=== PATIENT | female | born 1970 | race Caucasian/White ===

== ENCOUNTER 2017-11-14 17:28 | Emergency (ER) | payer BC ==
[~2017-11-14] VITALS: Ht 165.1 cm; Wt 108.0 kg
--- NOTE | 2017-11-14 19:35 | Diagnostic Imaging Report ---
PROCEDURE: Frontal and lateral views of the chest. COMPARISON: None. INDICATIONS: HEMOGLOBIN LEVEL LOW FINDINGS: Lines/tubes: None. Lungs: The lungs are well inflated and clear. There is no evidence of pneumonia or pulmonary edema. Pleura: There is no pleural effusion or pneumothorax. Heart and mediastinum: The heart and the mediastinum are normal. Bones: No acute bony abnormality. Upper abdomen: No free air under the diaphragm. Surgical clips overlying the abdomen on lateral view are likely related to cholecystectomy. IMPRESSION: No acute cardiopulmonary disease. Dictated by: Arnaud Gibson M.D. on 11/14/2017 at 19:44 Electronically approved by: Arnaud Gibson M.D. on 11/14/2017 at 19:44
[2017-11-14 23:23] LABS: BASOPHILS # (AUTO) 0.1 (0.0-0.1); BASOPHILS % 0.6 % (0.0-1.0); EOSINOPHILS # (AUTO) 0.2 (0.0-0.4); EOSINOPHILS % 2.1 % (0.0-6.0); HEMATOCRIT 30.3 % (34.2-44.1); HEMOGLOBIN 8.3 g/dL (12.0-16.0); LYMPHOCYTES # (AUTO) 2.1 (1.0-3.2); LYMPHOCYTES % 26.7 % (18.0-39.1); MEAN CORPUSCULAR HEMOGLOBIN 18.4 pg (28-32); MEAN CORPUSCULAR HGB CONC 27.4 g/dL (31-35); MONOCYTES # (AUTO) 0.4 (0.2-0.8); MONOCYTES % 5.5 % (4.4-11.3); NEUTROPHILS # (AUTO) 5.2 (2.1-6.9); NEUTROPHILS % 64.9 % (38.7-80.0); PLATELET COUNT 476 x10e3/uL (140-360); RED BLOOD COUNT 4.52 x10e6/uL (3.6-5.1); RED CELL DISTRIBUTION WIDTH 21.3 % (11.7-14.4)
[2017-11-14 23:30] LABS: INR 0.89; PROTHROMBIN TIME 12.5 seconds (11.9-14.5)
[2017-11-14 23:41] LABS: ALANINE AMINOTRANSFERASE 11 IU/L (0-55); ALBUMIN 3.8 g/dL (3.5-5.0); ALBUMIN/GLOBULIN RATIO 0.8 (0.8-2.0); ALKALINE PHOSPHATASE 118 IU/L (40-150); ANION GAP 17.5 mmol/L (8-16); BLOOD UREA NITROGEN 6 mg/dL (7-26); BUN/CREATININE RATIO 8 (6-25); CALCIUM 9.2 mg/dL (8.4-10.2); CARBON DIOXIDE 19 mmol/L (22-29); CHLORIDE 109 mmol/L (98-107); CREATINE KINASE 86 IU/L (29-168); CREATININE, SERUM 0.77 mg/dL (0.57-1.11); EST GLOMERULAR FILTRATION RATE > 60 ML/MIN (60-); GLUCOSE 88 mg/dL (74-118); POTASSIUM 4.5 mmol/L (3.5-5.1); SODIUM 141 mmol/L (136-145)
[2017-11-15 00:02] LABS: FERRITIN 4.68 ng/mL (4.63-204.00)
== END 2017-11-15 00:46 | disposition home or self-care (01) ==
LOC: ER 17:28 → EDSEX 17:28 → ER 11-15 00:46
DX: D50.0 Iron deficiency anemia secondary to blood loss (chronic) (principal); I10 Essential (primary) hypertension; E03.9 Hypothyroidism, unspecified
CPT/HCPCS: 36415; 71046; 80053; 82550; 82553; 82728; 83540; 84466; 84484; 84702; 85025; 85610; 85730; 86850; 86900; 99284